=== PATIENT | female | born 1990 | race Caucasian/White ===

== ENCOUNTER → 2021-12-11 08:43 | Outpatient (CLI) | payer OTHER, SELFPAY ==
--- NOTE | ~2021-12-11 | US_ITS ---
EXAMINATION: US breast LT limited HISTORY: Pain and palpable lump in the lower outer left breast TECHNIQUE: Limited left breast ultrasound is performed. FINDINGS: There is no evidence of focal abnormal cystic or solid mass in the vicinity of the patient' s reported left breast pain and palpable abnormality. IMPRESSION: No specific sonographic correlate is identified for the reported pain or palpable abnormality of conc angélica. Further evaluation at this time should be based on clinical assessment. Continued follow-up phys ical examination is recommended. BI-RADS Category 1: Negative Reviewed, dictated and finalized at location A. IMPRESSION: No specific sonographic correlate is identified for the reported pain or palpab le abnormality of concern. Further evaluation at this time should be based on c linical assessment. Continued follow-up physical examination is recommended. BI-RADS Category 1: Negative
== END ==
PROVIDERS: PCP Physician Assistant; Visit Provider Nurse Practitioner Obstetrics & Gynecology
DX: N64.4 Mastodynia (principal)
CPT/HCPCS: 76642